=== PATIENT | male | born 1935 | race Caucasian/White ===

== ENCOUNTER 2021-02-15 15:42 | Inpatient (IN) | payer MEDICARE, OTHER ==
[~2021-02-15] VITALS: Ht 162.6 cm; Wt 65.8 kg
--- NOTE | 2021-02-15 16:35 | NUR ---
The patient is [facility] for medical clearance prior to [facility] admission. Per paperwork, the patient aggitated and striking at staff. Alert and oriented to self. Denies pain at this time. In room air and denies SOB. Respiration regular and unlabored. warm blanket provided for comfort. Will continue to monitor the patient.
[2021-02-15] MEDS ORDERED: IBUP-1953 PO (16:41)
[2021-02-15] MEDS ORDERED: MELA5TAB PO (16:41)
[2021-02-15] MEDS ORDERED: MAG30ORA PO (16:41)
[2021-02-15] MEDS ORDERED: AMLO5TAB4 PO (16:41)
[2021-02-15] MEDS ORDERED: DIVA-78 PO (16:41)
[2021-02-15] MEDS ORDERED: MULT-447 PO (16:41)
[2021-02-15] MEDS ORDERED: ASCO500C17 PO (16:41)
[2021-02-15] MEDS ORDERED: MAGN400T8 PO (16:41)
[2021-02-15] MEDS ORDERED: DIVA250T PO (16:41)
[2021-02-15] MEDS ORDERED: NA P133E RC (16:41)
[2021-02-15] MEDS ORDERED: MAGN400O6 PO (16:41)
[2021-02-15] MEDS ORDERED: BISA10SU11 RC (16:41)
[2021-02-15 17:16] LABS: BASOPHILS % (AUTO) 0.4 % (0.0-2.0); EOSINOPHILS % (AUTO) 3.1 % (0.0-6.0); HEMATOCRIT 28 % (39-51); HEMOGLOBIN 9.1 g/dL (13.5-17.5); LYMPHOCYTES # (AUTO) 5.7 /CMM (0.8-4.8); LYMPHOCYTES % (AUTO) 48.4 % (20.0-44.0); MEAN CORPUSCULAR HGB CONC 33 g/dl (31.0-36.0); MEAN CORPUSCULAR VOLUME 92 fL (80-96); MONOCYTES # (AUTO) 1.1 /CMM (0.1-1.30); MONOCYTES % (AUTO) 9.1 % (2.0-12.0); NEUTROPHILS # (AUTO) 4.6 /CMM (1.8-8.9); PLATELET COUNT (AUTO) 281 /CMM (150-450); RED BLOOD CELL COUNT(AUTO) 3.04 MIL/uL (4.5-6.0); WHITE BLOOD COUNT (AUTO) 11.7 K/uL (4.3-11.0)
[2021-02-15 17:25] LABS: CALCIUM, SERUM 9.1 mg/dL (8.5-10.1); CARBON DIOXIDE 27 mmol/L (21-32); CHLORIDE 105 mmol/L (98-107); CREATININE 0.9 mg/dL (0.6-1.3); GLUCOSE 106 mg/dL (74-106); POTASSIUM 4.7 mmol/L (3.5-5.1); SODIUM SERUM 142 mmol/L (136-145); UREA NITROGEN, BLOOD 34 mg/dL (7-18)
[2021-02-15 17:31] LABS: ACETAMINOPHEN < 2 ug/ml (10-30); ALANINE AMINOTRANSFERASE 10 U/L (12-78); ALCOHOL, BLOOD < 3 mg/dL (0-0); ALKALINE PHOSPHATASE 71 U/L (46-116); ASPARTATE AMINOTRANSFERASE 15 U/L (15-37); BILIRUBIN,DIRECT 0.1 mg/dL (0.0-0.2); BILIRUBIN,TOTAL 0.3 mg/dL (0.2-1.0); TOTAL PROTEIN, SERUM 7.6 g/dL (6.4-8.2)
--- NOTE | 2021-02-15 17:45 | NUR ---
COVID SWAB COLLECTED AND SENT.
[2021-02-15 17:56] LABS: BILIRUBIN,URINE Negative (NEGATIVE); COLOR,URINE YELLOW (YELLOW); LEUKOCYTE ESTERASE ,URINE Moderate (NEGATIVE); NITRITE, URINE Positive (NEGATIVE); PROTEIN,URINE 100 mg/dl (NEGATIVE); UGLUCOSE Negative (NEGATIVE)
--- NOTE | 2021-02-15 17:59 | NUR ---
CALLED ELEVATOR CONSTRUCTOR [employer]LECT[employer] FOR EVAL. NO ANSWER. LEFT MESSAGE.
[2021-02-15 18:03] LABS: BACTERIA,URINE 3+ /HPF (None Seen); SQUAMOUS EPITHELIAL CELL,UR Few /HPF (None Seen); WBC,URINE 21-50 /HPF (0-3)
--- NOTE | 2021-02-15 20:56 | NUR ---
gps 218
[2021-02-15] MEDS ORDERED: CEPHALEXIN MONOHYDRATE 500 MG CAPSULE PO ONE ×2 (21:00→21:31)
[2021-02-15] MEDS ORDERED: MAG HYDROX/AL HYDROX/SIMETH 30 ML UDC PO PRN (21:30)
[2021-02-15] MEDS ORDERED: BISACODYL SUPP (10 MG) 10 MG/SUPP.RECT SUPP.RECT RC PRN (21:30)
[2021-02-15] MEDS ORDERED: MAGNESIUM HYDROXIDE 30 ML UDC PO PRN (21:30)
[2021-02-15] MEDS ORDERED: NA PHOS,M-B/NA PHOS,DI-BA 1 EA ENEMA RC PRN (21:30)
[2021-02-15] MEDS ORDERED: Medication Not On Formulary EA (Melatonin 5 MG) PO SCH (22:00)
--- NOTE | 2021-02-16 00:34 | NUR ---
ATTEMPTED TO GIVE REPORT, ROOM IS NOT AVAILABLE.
--- NOTE | 2021-02-16 01:19 | NUR ---
GAVE REPORT TO CASSIE, RN FOR CHEMO
[2021-02-16] MEDS ORDERED: MAGNESIUM HYDROXIDE 30 ML UDC PO PRN (02:00)
[2021-02-16] MEDS ORDERED: ACETAMINOPHEN 325 MG TABLET PO PRN (02:00)
[2021-02-16] MEDS ORDERED: MAG HYDROX/AL HYDROX/SIMETH 30 ML UDC PO PRN (02:00)
[2021-02-16] MEDS ORDERED: BLOOD SUGAR DIAGNOSTIC 1 EACH STRIP IN ONE (02:30)
--- NOTE | 2021-02-16 03:30 | NUR ---
GPS RN NOTES: RECEIVED PATIENT FROM ER VIA RNEY. PATIENT ARRIVED THIS UNIT AT 0129 ON A 5150 HOLD FOR DTO/GRAVELY DISABLED. HOLD WAS PLACED ON 02/15/21 @ 2143. PER HOLD, PATIENT WAS CONFUSED, AGITATED, AGGRESSIVE, COMBATIVE, ATTEMPTED TO ATTACK RESIDENTS AND STAFF, YELLING AT STAFF AND ATTEMPTING CONSTANTLY TO LEAVE FACILITY. PATIENT HAS A HX OF BIPOLAR, AND DEMENTIA. UPON FACE TO FACE EVALUATION PATIENT IS A/O 1-2, DISORIENTED, CONFUSED, EASILY AGITATED, STRIKING AT STAFF WHEN CHANGING HIS DIAPER, REDIRECTABLE, BECAME CALM LATER AND WENT TO SLEEP. PATIENT HAS NO S/S OF DISTRESS AT THIS TIME. PATIENT'S BREATHING IS EVEN AND UNLABORED WITH EQUAL RISE AND FALL OF THE CHEST ON ROOM AIR. PATIENT HAS NO NEEDS AT THIS TIME. PATIENT DENIES SI AT THIS TIME. PATIENT HAS BEEN ADVISED OF HIS HOLD AND PT RIGHTS BOOKLET GIVEN. PATIENT BELONGINGS WERE INVENTORIED AND CHECKED FOR CONTRABAND. PATIENT IMMUNIZATIONS QUESTIONNAIRE, AND OTHER NECESSARY ADMISSION PAPERWORK COMPLETED, PATIENT UNABLE TO SIGN PAPER WORK. PATIENT SKIN ASSESSMENT COMPLETED, SKIN IS INTACT. PATIENT REFUSED ACCU CHEK. PATIENT ORIENTED TO ROOM, FLOOR/UNIT AND STAFF. PATIENT IS UNDER THE PSYCHIATRIC CARE OF DR CHURCH AND MEDICAL CARE OF DR CALLAWAY. BOTH DOCTORS HAVE BEEN INFORMED OF PATIENT ADMISSION AND ORDERS CARRIED OUT. PATIENT IS CURRENTLY SLEEPING COMFORTABLE IN BED. SAFETY PRECAUTION INITIATED, BED IN LOWEST POSITION AND LOCKED WITH SIDE RAILS UP X2. CALL LIGHT WITHIN REACH OF THE PATIENT. WILL CONTINUE TO MONITOR Q15 FOR SAFETY, MOOD AND BEHAVIOR.
[2021-02-16 04:09] VITALS: BP 137/72
--- NOTE | 2021-02-16 06:42 | NUR ---
GPS RN CLOSING NOTES: PATIENT AWAKE, A/O X2. PATIENT SLEPT 7HRS THIS SHIFT. NO S/S OF DISTRESS. RESPIRATION EVEN AND UNLABORED WITH EQUAL RISE AND FALL OF THE CHEST ON ROOM AIR. ALL PATIENT CARE NEEDS HAVE BEEN MET ANTICIPATED. BED IN LOWEST POSITION AND LOCKED WITH SIDE RAILS UP X2. WILL CONTINUE TO MONITOR FOR SAFETY, MOOD AND BEHAVIOR AND ENDORSE TO AM SHIFT.
[2021-02-16 08:00] VITALS: BP 110/59
[2021-02-16] MEDS: AMLODIPINE BESYLATE 5 MG TABLET PO SCH (09:00)
[2021-02-16] MEDS: IBUPROFEN 400 MG TABLET PO SCH ×2 (09:39→18:54)
[2021-02-16] MEDS: MULTIVITAMINS,THERAGRAN 1 UDTAB TABLET PO SCH (09:39)
[2021-02-16] MEDS: MAGNESIUM OXIDE 400 MG TABLET PO SCH (09:39)
[2021-02-16] MEDS ORDERED: CEPHALEXIN MONOHYDRATE 500 MG CAPSULE PO SCH (12:00)
[2021-02-16] MEDS: CEPHALEXIN MONOHYDRATE 500 MG CAPSULE PO SCH ×2 (13:39→21:40)
[2021-02-16 15:57] VITALS: BP 124/57
--- NOTE | 2021-02-16 18:51 | NUR ---
cooperative and med compliant.
--- NOTE | 2021-02-16 19:45 | NUR ---
GPS RN NOTES RECEIVED LYING COMFORTABLY ON BED,BREATHING REGULAR NOT IN ANY FORM OF DISTRESS.PER REPOT PATIENT EASILY GETS AGITATED.WILL CONTINUE TO MONITOR BEHAVIOR
[2021-02-16 20:00] VITALS: BP 114/62
--- NOTE | 2021-02-16 20:11 | NUR ---
GPS RN NOTES MD VISIT DR CERVANTES AT BEDSIDE TALKING TO PATIENT.
[2021-02-16 20:53] VITALS: BP 114/62
[2021-02-17] MEDS: TEMAZEPAM 7.5 MG CAPSULE PO PRN ×2 (01:31→21:38)
--- NOTE | 2021-02-17 01:35 | NUR ---
GPS RN NOTES STILL AWAKE,GETTING OUT OF BED,MEDICATED WITH RESTORIL 7.5MG PO ORDERED FOR INSOMNIA
[2021-02-17] MEDS: CEPHALEXIN MONOHYDRATE 500 MG CAPSULE PO SCH ×3 (05:49→21:38)
[2021-02-17 06:28] LABS: BASOPHILS # (AUTO) 0.1 /CMM (0.0-0.2); BASOPHILS % (AUTO) 0.5 % (0.0-2.0); EOSINOPHILS % (AUTO) 4.6 % (0.0-6.0); HEMATOCRIT 27 % (39-51); HEMOGLOBIN 8.9 g/dL (13.5-17.5); LYMPHOCYTES # (AUTO) 4.2 /CMM (0.8-4.8); LYMPHOCYTES % (AUTO) 40.3 % (20.0-44.0); MEAN CORPUSCULAR HGB CONC 34 g/dl (31.0-36.0); MEAN CORPUSCULAR VOLUME 91 fL (80-96); MONOCYTES # (AUTO) 0.8 /CMM (0.1-1.30); MONOCYTES % (AUTO) 8.1 % (2.0-12.0); NEUTROPHILS # (AUTO) 4.8 /CMM (1.8-8.9); NEUTROPHILS % (AUTO) 46.5 % (43.0-81.0); PLATELET COUNT (AUTO) 260 /CMM (150-450); RED BLOOD CELL COUNT(AUTO) 2.92 MIL/uL (4.5-6.0); WHITE BLOOD COUNT (AUTO) 10.4 K/uL (4.3-11.0)
--- NOTE | 2021-02-17 06:33 | NUR ---
GPS RN NOTES NO SIGNIFICANT CHANGE IN STATUS,MED COMPLIANT,NO FALL,NO INJURY,NO DISTRESS.
[2021-02-17 06:48] LABS: CALCIUM, SERUM 8.6 mg/dL (8.5-10.1); CREATININE 0.7 mg/dL (0.6-1.3)
[2021-02-17 08:00] VITALS: BP 127/68
[2021-02-17] MEDS: DIVALPROEX SODIUM 250 MG TABLET.DR PO SCH ×2 (08:45→17:41)
[2021-02-17] MEDS: MAGNESIUM OXIDE 400 MG TABLET PO SCH (08:46)
[2021-02-17] MEDS: RIVASTIGMINE TARTRATE 1.5 MG CAPSULE PO SCH ×2 (08:46→21:38)
[2021-02-17] MEDS: MULTIVITAMINS,THERAGRAN 1 UDTAB TABLET PO SCH (08:46)
[2021-02-17] MEDS: AMLODIPINE BESYLATE 5 MG TABLET PO SCH (08:46)
[2021-02-17] MEDS: IBUPROFEN 400 MG TABLET PO SCH ×2 (09:04→17:41)
[2021-02-17 16:00] VITALS: BP 159/67
[2021-02-17 20:00] VITALS: BP 128/66
--- NOTE | 2021-02-17 21:40 | NUR ---
GPS RN NOTES: RESTORIL 7.5MG 1 CAP GIVEN PO PRN ORDERED AT 2137. WILL CONTINUE TO MONITOR.
[2021-02-18] MEDS: LORAZEPAM 0.5 MG TABLET PO PRN (01:08)
--- NOTE | 2021-02-18 01:12 | NUR ---
GPS RN NOTES: PATIENT IS RESTLESS AND ANXIOUS. ATIVAN 0.5MG 1 TAB GIVEN PO AT 0108. WILL CONTINUE TO MONITOR.
[2021-02-18] MEDS: CEPHALEXIN MONOHYDRATE 500 MG CAPSULE PO SCH ×3 (05:18→21:23)
--- NOTE | 2021-02-18 06:55 | NUR ---
GPS RN CLOSING NOTES: PATIENT AWAKE, A/O X2. PATIENT SLEPT 7HRS THIS SHIFT. PATIENT CLEANED AND DIAPER CHANGED. NO S/S OF DISTRESS. RESPIRATION EVEN AND UNLABORED WITH EQUAL RISE AND FALL OF THE CHEST ON ROOM AIR. ALL PATIENT CARE NEEDS HAVE BEEN MET ANTICIPATED. BED IN LOWEST POSITION AND LOCKED WITH SIDE RAILS UP X2. WILL CONTINUE TO MONITOR FOR SAFETY, MOOD AND BEHAVIOR AND ENDORSE TO AM SHIFT.
[2021-02-18 08:00] VITALS: BP 121/56
--- NOTE | 2021-02-18 09:00 | NUR ---
RN NOTE- PT CONFUSED DEPRESSED BLUNTED AFFECT DENIES ALL SLOW TO RESPOND DISORGANIZED MED COMPLIANT PO INTAKE POOR THIS FAR TODAY
[2021-02-18] MEDS: DIVALPROEX SODIUM 250 MG TABLET.DR PO SCH ×2 (09:38→16:17)
[2021-02-18] MEDS: RIVASTIGMINE TARTRATE 1.5 MG CAPSULE PO SCH ×2 (09:38→21:23)
[2021-02-18] MEDS: MAGNESIUM OXIDE 400 MG TABLET PO SCH (09:38)
[2021-02-18] MEDS: IBUPROFEN 400 MG TABLET PO SCH ×2 (09:38→17:56)
[2021-02-18] MEDS: AMLODIPINE BESYLATE 5 MG TABLET PO SCH (09:39)
[2021-02-18] MEDS: MULTIVITAMINS,THERAGRAN 1 UDTAB TABLET PO SCH (09:40)
--- NOTE | 2021-02-18 14:15 | NUR ---
Facility Contact: KADE contacted Radha ([phone]) from [facility] who stated that the pt will be accepted back to their facility.
--- NOTE | 2021-02-18 14:21 | NUR ---
Point of Contact: KADE contacted Ailyn ([phone]) and left a voicemail stating that the SW would like to discuss the pts treatment plan.
--- NOTE | 2021-02-18 15:22 | NUR ---
Initial Discharge Plan: Pt currently resides at [facility] located at [address] [place] [address]; ([phone]). Per pt, he would like to go back to where he came from. KADE will work with the pt and the MD regarding appropriate discharge planning. SW will form a safe and proper discharge plan.
--- NOTE | 2021-02-18 15:29 | NUR ---
Point of Contact: Ailyn ([phone]), pts friend, contacted the SW and stated that she is the only one involved in the pts life and is in the process of becoming his conservator. She stated that she would want the pt to return to [facility].
[2021-02-18 16:00] VITALS: BP 118/51
[2021-02-18 20:00] VITALS: BP 143/58
[2021-02-18] MEDS: TEMAZEPAM 7.5 MG CAPSULE PO PRN ×2 (22:16→22:50)
--- NOTE | 2021-02-18 22:50 | NUR ---
GPS RN NOTE: INSOMNIA PATIENT IS UNABLE TO SLEEP. PRN RESTORIL 7.5MG PO GIVEN ORDERED. MEDICATION ADMINISTERED AT 2216 INEFFECTIVE. ADMINISTERED RESTORIL 7.5MG PO HSMR 1 PRN FOR SLEEP ORDERED AT 2250. WILL CONTINUE TO MONITOR FOR EFFECTIVENESS OF THE MEDICATION.
[2021-02-19] MEDS: CEPHALEXIN MONOHYDRATE 500 MG CAPSULE PO SCH (05:53)
[2021-02-19 08:00] VITALS: BP 138/67
[2021-02-19] MEDS: DIVALPROEX SODIUM 250 MG TABLET.DR PO SCH ×2 (08:57→16:32)
[2021-02-19] MEDS: MULTIVITAMINS,THERAGRAN 1 UDTAB TABLET PO SCH (08:57)
[2021-02-19] MEDS: IBUPROFEN 400 MG TABLET PO SCH ×2 (08:57→17:40)
[2021-02-19] MEDS: SULFAMETH/TRIMETH 800/160 MG 1 UDTAB TABLET PO SCH ×2 (08:57→21:20)
[2021-02-19] MEDS: RIVASTIGMINE TARTRATE 1.5 MG CAPSULE PO SCH ×2 (08:58→21:20)
[2021-02-19] MEDS: AMLODIPINE BESYLATE 5 MG TABLET PO SCH (08:58)
[2021-02-19] MEDS: MAGNESIUM OXIDE 400 MG TABLET PO SCH (08:58)
--- NOTE | 2021-02-19 09:00 | NUR ---
RN NOTE- CONTINUES MUCH THE SAME PT CONFUSED DEPRESSED BLUNTED AFFECT DENIES ALL SLOW TO RESPOND DISORGANIZED MED COMPLIANT PO INTAKE POOR THIS FAR TODAY
[2021-02-19 16:00] VITALS: BP 93/51
[2021-02-19] MEDS ORDERED: risperiDONE 0.25 MG TABLET PO SCH (16:30)
[2021-02-19] MEDS: risperiDONE 0.25 MG TABLET PO SCH (17:28)
[2021-02-19 20:57] VITALS: BP 107/78
[2021-02-19] MEDS: TEMAZEPAM 7.5 MG CAPSULE PO PRN ×2 (22:08→22:42)
--- NOTE | 2021-02-19 22:42 | NUR ---
GPS RN NOTE: INSOMNIA PATIENT IS UNABLE TO SLEEP. PRN RESTORIL 7.5MG PO GIVEN ORDERED. ADMINISTERED RESTORIL AT 2208 AND WAS INEFFECTIVE. ADMINISTERED RESTORIL 7.5MG PO HSMR 1 PRN FOR SLEEP ORDERED AT 2242. WILL CONTINUE TO MONITOR FOR EFFECTIVENESS OF THE MEDICATION.
--- NOTE | 2021-02-20 07:30 | NUR ---
PT RECEIVED RESTING COMFORTABLY IN BED. NO S/S OR C/O PAIN OR DISTRESS NOTED. SIDE RAILS UP X2, WILL CONTINUE PLAN OF CARE.
[2021-02-20 08:00] VITALS: BP 142/73
[2021-02-20] MEDS: RIVASTIGMINE TARTRATE 1.5 MG CAPSULE PO SCH ×2 (09:01→21:33)
[2021-02-20] MEDS: MULTIVITAMINS,THERAGRAN 1 UDTAB TABLET PO SCH (09:01)
[2021-02-20] MEDS: IBUPROFEN 400 MG TABLET PO SCH ×2 (09:01→18:27)
[2021-02-20] MEDS: DIVALPROEX SODIUM 250 MG TABLET.DR PO SCH ×2 (09:01→18:27)
[2021-02-20] MEDS: risperiDONE 0.25 MG TABLET PO SCH ×2 (09:02→21:33)
[2021-02-20] MEDS: MAGNESIUM OXIDE 400 MG TABLET PO SCH (09:02)
[2021-02-20] MEDS: AMLODIPINE BESYLATE 5 MG TABLET PO SCH (09:02)
[2021-02-20] MEDS: SULFAMETH/TRIMETH 800/160 MG 1 UDTAB TABLET PO SCH ×2 (09:20→21:33)
[2021-02-20 16:00] VITALS: BP 126/58
--- NOTE | 2021-02-20 18:46 | NUR ---
CHANGE OF SHIFT REPORT PT RESTING COMFORTABLY IN CHAIR. NO S/S OR C/O PAIN OR DISTRESS NOTED. SIDE RAILS UP X2, PT KEPT CLEAN, DRY, AND COMFORTABLE. NO SIGNIFICANT CHANGE SINCE PREVIOUS SHIFT.
[2021-02-20 20:29] VITALS: BP 96/57
[2021-02-21 08:00] VITALS: BP 120/66
[2021-02-21] MEDS: MULTIVITAMINS,THERAGRAN 1 UDTAB TABLET PO SCH (09:04)
[2021-02-21] MEDS: DIVALPROEX SODIUM 250 MG TABLET.DR PO SCH ×2 (09:04→16:26)
[2021-02-21] MEDS: SULFAMETH/TRIMETH 800/160 MG 1 UDTAB TABLET PO SCH ×2 (09:04→21:36)
[2021-02-21] MEDS: MAGNESIUM OXIDE 400 MG TABLET PO SCH (09:04)
[2021-02-21] MEDS: AMLODIPINE BESYLATE 5 MG TABLET PO SCH (09:04)
[2021-02-21] MEDS: RIVASTIGMINE TARTRATE 1.5 MG CAPSULE PO SCH ×2 (09:04→21:36)
[2021-02-21] MEDS: risperiDONE 0.25 MG TABLET PO SCH (09:04)
[2021-02-21] MEDS: IBUPROFEN 400 MG TABLET PO SCH ×2 (09:04→17:30)
--- NOTE | 2021-02-21 10:30 | NUR ---
Probable Cause Hearing: Pts [id number] hold was upheld for grave disability.
[2021-02-21 16:00] VITALS: BP 117/60
[2021-02-21 20:02] VITALS: BP 101/52
[2021-02-21 20:18] VITALS: BP 101/52
[2021-02-21] MEDS: risperiDONE 1 MG TABLET PO SCH (21:36)
[2021-02-21] MEDS: TEMAZEPAM 7.5 MG CAPSULE PO PRN (22:52)
--- NOTE | 2021-02-21 22:53 | NUR ---
GPS RN NOTE: INSOMNIA PATIENT IS UNABLE TO SLEEP, GETTING RESTLESS & ANXIOUS. PRN RESTORIL 7.5 MG 1 CAP PO ADMINISTERED. WILL CONTINUE TO MONITOR FOR EFFECTIVENESS.
[2021-02-22 07:47] LABS: CALCIUM, SERUM 8.8 mg/dL (8.5-10.1); CARBON DIOXIDE 26 mmol/L (21-32); CHLORIDE 105 mmol/L (98-107); CREATININE 1.4 mg/dL (0.6-1.3); GLUCOSE 88 mg/dL (74-106); POTASSIUM 4.5 mmol/L (3.5-5.1); SODIUM SERUM 138 mmol/L (136-145); UREA NITROGEN, BLOOD 51 mg/dL (7-18)
[2021-02-22 08:00] VITALS: BP 108/69
--- NOTE | 2021-02-22 08:02 | NUR ---
RN-NOTES DR. GARVIN IN THE UNIT WITH VERBAL ORDER OF BPM IN AM NOTED AND CARRIED OUT.
[2021-02-22] MEDS: SULFAMETH/TRIMETH 800/160 MG 1 UDTAB TABLET PO SCH ×2 (08:39→21:04)
[2021-02-22] MEDS: MULTIVITAMINS,THERAGRAN 1 UDTAB TABLET PO SCH (08:39)
[2021-02-22] MEDS: IBUPROFEN 400 MG TABLET PO SCH ×2 (08:39→18:30)
[2021-02-22] MEDS: risperiDONE 1 MG TABLET PO SCH ×2 (08:39→21:04)
[2021-02-22] MEDS: DIVALPROEX SODIUM 250 MG TABLET.DR PO SCH ×2 (08:39→17:27)
[2021-02-22] MEDS: MAGNESIUM OXIDE 400 MG TABLET PO SCH (08:40)
[2021-02-22] MEDS: AMLODIPINE BESYLATE 5 MG TABLET PO SCH (08:40)
[2021-02-22] MEDS: RIVASTIGMINE TARTRATE 1.5 MG CAPSULE PO SCH ×2 (08:40→21:04)
[2021-02-22] MEDS ORDERED: IV NS 0.9% 1,000 ML IV ONE (10:30)
--- NOTE | 2021-02-22 12:30 | NUR ---
RN-NOTES PATIENT ON IV FLUID OF 0.9% NS @ 75 ML/HR INFUSING WELL. WELL TOLERATED, IV LINE ON RIGHT FA #20. NO COMPLICATION NOTED ON THE IV SITE. WILL ENDORSE TO INCOMING NURSE FOR MONITORING AND CONTINUITY OF CARE.
[2021-02-22 16:00] VITALS: BP 137/68
[2021-02-22] MEDS: LORAZEPAM 0.5 MG TABLET PO PRN (17:30)
--- NOTE | 2021-02-22 17:30 | NUR ---
RN-NOTES PATIENT VERY ANXIOUS WITH AGITATION PULLING HIS IV LINE ON RIGHT FOREARM , REDIRECTED AND ATIVAN 0.5MG P.O GIVEN PRN ORDER. WILL CONT. MONITORING FOR SAFETY AND BEHAVIOR.
--- NOTE | 2021-02-22 19:10 | NUR ---
RN-NOTES RECEIVED PATIENT FROM DAY NURSE ON IV FLUID OF 0.9% NS @ 75 ML/HR INFUSING WELL, IV LINE ON RIGHT FA #20. DENIES ANY DISCOMFORT AT THIS TIME ,NO COMPLICATION NOTED ON THE IV SITE. WILL CONTINUITY WITH CARE.
[2021-02-22 20:04] VITALS: BP 126/87
[2021-02-23] MEDS: TEMAZEPAM 7.5 MG CAPSULE PO PRN ×2 (00:07→23:24)
--- NOTE | 2021-02-23 00:08 | NUR ---
GPS RN NOTE: INSOMNIA PATIENT IS UNABLE TO SLEEP, GETTING RESTLESS & ANXIOUS. PRN RESTORIL 7.5 MG PO ADMINISTERED. WILL CONTINUE TO MONITOR FOR EFFECTIVENESS.
--- NOTE | 2021-02-23 01:00 | NUR ---
RN NOTES : IV INFUSION COMPLTED, PT. TOLERATED WELL NO ACUTE DISTRESS NOTED, WILL CONTINUITY WITH CARE.
[2021-02-23 07:29] LABS: CALCIUM, SERUM 9.3 mg/dL (8.5-10.1); CARBON DIOXIDE 23 mmol/L (21-32); CHLORIDE 106 mmol/L (98-107); CREATININE 1.5 mg/dL (0.6-1.3); GLUCOSE 77 mg/dL (74-106); POTASSIUM 5.2 mmol/L (3.5-5.1); SODIUM SERUM 138 mmol/L (136-145); UREA NITROGEN, BLOOD 52 mg/dL (7-18)
[2021-02-23 08:00] VITALS: BP 118/40
--- NOTE | 2021-02-23 08:00 | NUR ---
GPS RN NOTE: PT RECEIVED ASLEEP, EASILY AROUSAL. VERBALLY RESPONSIVE. NO S/S OF BREATHING DISTRESS NOTED, ON RA. DENIES PAIN & DISCOMFORT. ALERT AWAKE OX1-2. DENIES PAIN & DISCOMFORT. SAFETY MEASURES OBSERVED. DENIES SI/HI. ENCOURAGE PT TO CALL FOR ASSIST. CONTINUE TO MONITOR Q15MIN FOR SAFETY.
[2021-02-23] MEDS: risperiDONE 1 MG TABLET PO SCH ×2 (08:22→21:29)
[2021-02-23] MEDS: IBUPROFEN 400 MG TABLET PO SCH (08:22)
[2021-02-23] MEDS: RIVASTIGMINE TARTRATE 1.5 MG CAPSULE PO SCH ×2 (08:22→21:28)
[2021-02-23] MEDS: SULFAMETH/TRIMETH 800/160 MG 1 UDTAB TABLET PO SCH ×2 (08:23→21:29)
[2021-02-23] MEDS: AMLODIPINE BESYLATE 5 MG TABLET PO SCH (08:23)
[2021-02-23] MEDS: MULTIVITAMINS,THERAGRAN 1 UDTAB TABLET PO SCH (08:23)
[2021-02-23] MEDS: MAGNESIUM OXIDE 400 MG TABLET PO SCH (08:24)
[2021-02-23] MEDS: DIVALPROEX SODIUM 250 MG TABLET.DR PO SCH ×2 (08:24→17:03)
[2021-02-23 16:00] VITALS: BP 137/74
[2021-02-23 16:14] VITALS: BP 137/74
[2021-02-23 20:23] VITALS: BP 93/62
--- NOTE | 2021-02-23 23:24 | NUR ---
GPS RN NOTE: INSOMNIA PATIENT IS UNABLE TO SLEEP, GETTING RESTLESS & ANXIOUS. PRN RESTORIL 7.5 MG PO ADMINISTERED. WILL CONTINUE TO MONITOR .
--- NOTE | 2021-02-24 05:18 | NUR ---
RN NOTES: PT. REFUSED TO GIVE URINE SAMPLE, DESPITE OF RISKS & BENEFITS EXPLANATIONS. PT. BEHAVIOR ANXIOUS, UNCOOPERATIVE, IRRITABLE ,WILL CONTINUE TO MONITOR THE PATIENT FOR SAFETY, MOOD & BEHAVIOR
[2021-02-24 08:00] VITALS: BP 107/62
--- NOTE | 2021-02-24 08:40 | NUR ---
RN-CO: SEEN AND EXAMINED BY DR CASEY (FOOD SAFETY SCIENTIST) WITH NO NEW ORDER AT THIS TIME. I WILL CONTINUE TO MONITOR PT AND OFFER PO WATER AND NOTIFY .
[2021-02-24] MEDS: AMLODIPINE BESYLATE 5 MG TABLET PO SCH (09:00)
--- NOTE | 2021-02-24 09:00 | NUR ---
RN-CO: OFFERED WATER, INTAKE WAS 240 ML.
[2021-02-24] MEDS: DIVALPROEX SODIUM 250 MG TABLET.DR PO SCH ×2 (09:15→16:37)
[2021-02-24] MEDS: SULFAMETH/TRIMETH 800/160 MG 1 UDTAB TABLET PO SCH ×2 (09:15→20:37)
[2021-02-24] MEDS: risperiDONE 1 MG TABLET PO SCH ×2 (09:15→20:37)
[2021-02-24] MEDS: MAGNESIUM OXIDE 400 MG TABLET PO SCH (09:15)
[2021-02-24] MEDS: RIVASTIGMINE TARTRATE 1.5 MG CAPSULE PO SCH ×2 (09:15→20:37)
[2021-02-24] MEDS: MULTIVITAMINS,THERAGRAN 1 UDTAB TABLET PO SCH (09:15)
[2021-02-24 10:04] LABS: BASOPHILS % (AUTO) 0.4 % (0.0-2.0); EOSINOPHILS % (AUTO) 5.1 % (0.0-6.0); HEMATOCRIT 26 % (39-51); HEMOGLOBIN 8.6 g/dL (13.5-17.5); LYMPHOCYTES # (AUTO) 3.4 /CMM (0.8-4.8); LYMPHOCYTES % (AUTO) 39.4 % (20.0-44.0); MEAN CORPUSCULAR HGB CONC 34 g/dl (31.0-36.0); MEAN CORPUSCULAR VOLUME 91 fL (80-96); MONOCYTES # (AUTO) 0.5 /CMM (0.1-1.30); MONOCYTES % (AUTO) 6.2 % (2.0-12.0); NEUTROPHILS # (AUTO) 4.2 /CMM (1.8-8.9); NEUTROPHILS % (AUTO) 48.9 % (43.0-81.0); PLATELET COUNT (AUTO) 271 /CMM (150-450); RED BLOOD CELL COUNT(AUTO) 2.84 MIL/uL (4.5-6.0); WHITE BLOOD COUNT (AUTO) 8.7 K/uL (4.3-11.0)
[2021-02-24 10:50] LABS: ALBUMIN 2.9 g/dL (3.4-5.0); BILIRUBIN,TOTAL 0.2 mg/dL (0.2-1.0); CALCIUM, SERUM 8.7 mg/dL (8.5-10.1); CREATININE 1.3 mg/dL (0.6-1.3); PHOSPHORUS 4.3 mg/dL (2.5-4.9); POTASSIUM 4.9 mmol/L (3.5-5.1); TOTAL PROTEIN, SERUM 7.1 g/dL (6.4-8.2)
--- NOTE | 2021-02-24 12:13 | NUR ---
RN-CO: OFFERED PO FLUIDS. CONSUME 1 CUP ABOUT 240 ML.
[2021-02-24 15:58] VITALS: BP 101/62
[2021-02-24 20:55] VITALS: BP 121/71
--- NOTE | 2021-02-24 23:21 | NUR ---
RN NOTE: REFUSED SKIN ASSESSMENT PT. REFUSED WEEKLY SKIN REASSESSMENT X 3 DESPITE OF RISKS & BENEFIT EXPLANATIONS, GETS AGITATED VERY EASILY, UNCOOPERATIVE, NON COMPLAINT, LABILE, PARANOID, WILL CONTINUE TO MONITOR FOR MOOD, SAFETY & BEHAVIOR.
--- NOTE | 2021-02-24 23:29 | NUR ---
RN NOTES: PT. REFUSED TO PROVIDE URINE SAMPLE, DESPITE OF RISKS & BENEFITS EXPLANATIONS. PT. BEHAVIOR PARANOID ANXIOUS, UNCOOPERATIVE, IRRITABLE ,WILL CONTINUE TO MONITOR THE PATIENT FOR SAFETY, MOOD & BEHAVIOR.
[2021-02-25 08:00] VITALS: BP 116/69
[2021-02-25] MEDS: risperiDONE 1 MG TABLET PO SCH ×2 (08:36→20:38)
[2021-02-25] MEDS: SULFAMETH/TRIMETH 800/160 MG 1 UDTAB TABLET PO SCH ×2 (08:36→20:38)
[2021-02-25] MEDS: DIVALPROEX SODIUM 250 MG TABLET.DR PO SCH ×2 (08:36→16:20)
[2021-02-25] MEDS: AMLODIPINE BESYLATE 5 MG TABLET PO SCH (08:36)
[2021-02-25] MEDS: RIVASTIGMINE TARTRATE 1.5 MG CAPSULE PO SCH ×2 (08:37→20:38)
[2021-02-25] MEDS: MAGNESIUM OXIDE 400 MG TABLET PO SCH (08:37)
[2021-02-25] MEDS: MULTIVITAMINS,THERAGRAN 1 UDTAB TABLET PO SCH (08:37)
--- NOTE | 2021-02-25 10:58 | NUR ---
CHARGE NURSE MADE IT KNOWN THAT URINE SAMPLE NEEDED FOR THIS PATIENT. I INFORMED PATIENT AND TOLD TO LET ME KNOW WHEN THEY HAVE TO URINATE, PATIENT REFUSED. PATIENT ALSO REFUSED URINAL.
[2021-02-25 11:07] LABS: *SPE A/G RATIO 0.9 (0.7-1.7); *SPE ALPHA-1-GLOBULIN 0.2 g/dL (0.0-0.4); *SPE ALPHA-2-GLOBULIN 0.7 g/dL (0.4-1.0); *SPE BETA GLOBULIN 0.9 g/dL (0.7-1.3); *SPE GLOBULIN, TOTAL 3.5 g/dL (2.2-3.9); *SPE M-SPIKE Not Observed g/dL (Not Observed); *SPEGAMMA GLOBULIN 1.6 g/dL (0.4-1.8); PTH, INTACT 24 pg/mL (15-65)
[2021-02-25 20:00] VITALS: BP 128/55
[2021-02-26 07:47] LABS: CALCIUM, SERUM 8.8 mg/dL (8.5-10.1); CREATININE 0.9 mg/dL (0.6-1.3); POTASSIUM 4.3 mmol/L (3.5-5.1)
[2021-02-26 08:00] VITALS: BP 99/59
[2021-02-26] MEDS: AMLODIPINE BESYLATE 5 MG TABLET PO SCH ×2 (09:00→10:05)
[2021-02-26] MEDS: MULTIVITAMINS,THERAGRAN 1 UDTAB TABLET PO SCH ×2 (09:00→10:04)
[2021-02-26] MEDS: RIVASTIGMINE TARTRATE 1.5 MG CAPSULE PO SCH ×2 (10:04→21:48)
[2021-02-26] MEDS: risperiDONE 1 MG TABLET PO SCH ×2 (10:05→21:48)
[2021-02-26] MEDS: MAGNESIUM OXIDE 400 MG TABLET PO SCH (10:05)
[2021-02-26] MEDS: DIVALPROEX SODIUM 250 MG TABLET.DR PO SCH ×2 (10:06→17:49)
[2021-02-26] MEDS: SULFAMETH/TRIMETH 800/160 MG 1 UDTAB TABLET PO SCH ×2 (10:06→21:47)
--- NOTE | 2021-02-26 12:56 | NUR ---
Facility Contact: KADE contacted Radha ([phone]) from [facility] and informed her that the pt is going to be discharged back to their facility tomorrow. She stated that her route relief driver can come around 4:30pm and that she wanted updated notes to be faxed over.
--- NOTE | 2021-02-26 12:57 | NUR ---
Point of Contact: KADE contacted Ailyn ([phone]) and left a voicemail that informed her that the pt is going to be discharged back to [facility] the following day.
--- NOTE | 2021-02-26 14:08 | NUR ---
SNF Contact: KADE faxed updated notes to [facility], (Attn: Radha).
[2021-02-26 16:00] VITALS: BP 118/62
[2021-02-26 20:00] VITALS: BP 127/82
--- NOTE | 2021-02-26 20:00 | NUR ---
GPS OPENING NOTE RECEIVED PATIENT SITTING IN A GERICHAIR, AWAKE, A/O X1. NO S/SX OF ACUTE DISTRESS NOTED. PATIENT REMAINS ANXIOUS, CONFUSED, LABILE, DISORIENTED.REORIENTATION PROVIDED.SAFETY PRECAUTIONS IN PLACE. WILL CONTINUE TO MONITOR Q15 MIN ROUNDS FOR SAFETY AND BEHAVIOR.
[2021-02-26] MEDS: TEMAZEPAM 7.5 MG CAPSULE PO PRN (21:47)
[2021-02-27 08:00] VITALS: BP 112/64
[2021-02-27] MEDS: AMLODIPINE BESYLATE 5 MG TABLET PO SCH (09:00)
[2021-02-27] MEDS: DIVALPROEX SODIUM 250 MG TABLET.DR PO SCH ×2 (10:20→16:43)
[2021-02-27] MEDS: risperiDONE 1 MG TABLET PO SCH (10:20)
[2021-02-27] MEDS: MAGNESIUM OXIDE 400 MG TABLET PO SCH (10:21)
[2021-02-27] MEDS: MULTIVITAMINS,THERAGRAN 1 UDTAB TABLET PO SCH (10:21)
[2021-02-27] MEDS: RIVASTIGMINE TARTRATE 1.5 MG CAPSULE PO SCH (10:21)
--- NOTE | 2021-02-27 13:00 | NUR ---
RN-NOTES RECEIVED T.O DISCHARGE ORDER FROM DR. CHURCH. NOTED AND CARRIED OUT.
--- NOTE | 2021-02-27 13:18 | NUR ---
Discharge Note: Pt will be discharged to [facility] ([facility]) located at [address] [place] [id number]; ([phone]). Pt will be picked up by the facility at 1630. KADE contacted Ailyn ([phone]) and left a voicemail that informed her that the pt is going to be discharged back to [facility] today. Upon discharge, the pt appears to be in an anxious mood, with restricted affect. Pt is alert and oriented x2 (place and self). Pt denies both suicidal and homicidal ideation as well as auditory and visual hallucinations. Pt will be under the care of his psychiatrist, Dr. Vaz, located at [address] [place] [address]; and repairer veneer sheet, Dr. Dee, located at [address] [place] [address] [id number], [place] [address]; . Pt signed the [employer] of [employer]. The multidisciplinary exit care form was done, printed, signed, and given to the patient. Addendum: 02/27/21 at 1447 by KADE GRADY Pt was provided with smoking cessation referrals as well.
--- NOTE | 2021-02-27 14:30 | NUR ---
refused discharge photos.
--- NOTE | 2021-02-27 14:30 | NUR ---
report called to gildardo at facility.
[2021-02-27 16:00] VITALS: BP 109/67
--- NOTE | 2021-02-27 16:43 | NUR ---
too sedated to receive disha depakote.
--- NOTE | 2021-02-27 17:40 | NUR ---
taken to lobby via w/c for transport to facility.pt.denies s/i,h/i and hallucinations.papers signed and given to regional dedicated truck driver.
== END 2021-02-27 17:45 | DRG 885 ==
LOC: ER 16:03 → GPS 23:03
PROVIDERS: ADMIT Psychiatry & Neurology Psychiatry
DX: F39 Unspecified mood [affective] disorder (principal); N17.0 Acute kidney failure with tubular necrosis; N39.0 Urinary tract infection, site not specified; E44.1 Mild protein-calorie malnutrition; F03.90 Unspecified dementia, unspecified severity, without behavioral disturbance, psychotic disturbance, mood disturbance, and anxiety; E03.9 Hypothyroidism, unspecified; F41.9 Anxiety disorder, unspecified; F29 Unspecified psychosis not due to a substance or known physiological condition; Z73.6 Limitation of activities due to disability; Z91.81 History of falling; R26.9 Unspecified abnormalities of gait and mobility; I10 Essential (primary) hypertension; Z86.16 Personal history of COVID-19; F32.9 Major depressive disorder, single episode, unspecified; M06.9 Rheumatoid arthritis, unspecified; M19.90 Unspecified osteoarthritis, unspecified site; D64.9 Anemia, unspecified; Z79.899 Other long term (current) drug therapy; R53.1 Weakness; B96.89 Other specified bacterial agents as the cause of diseases classified elsewhere
CPT/HCPCS: 36415; 80048-TC; 80053-TC; 80061-TC; 80076-TC; 81001; 82550-TC; 83735-TC; 83970; 84100-TC; 84155; 84165; 85025-TC; 87081-TC; 87086-TC; 87186-TC; 97110-TC; 97112-TC; 97116-TC; 97530-TC; C9803; G0480; J7030